=== PATIENT | female | born 1985 | race Caucasian/White ===

== ENCOUNTER 2024-10-16 11:00 | Outpatient (AMB) | payer MEDICAID, SELFPAY ==
--- NOTE | 2024-10-16 11:08 | A.SPINEOV_ITS ---
Intake Visit Reasons: Low back pain Intake Note: Ms. Carmona is here today c/o low back pain. MRI done @ [facility] (brought disc). [employer] Worker Required: No Assessment & Plan Assessment & Plan (1) Back pain: Code(s): M54.9 - Dorsalgia, unspecified Category: Medical Plan Dear Dr Poole, Thank you for referring Mrs Carmona to our office today. She is a very nice 39-year-old female who has had back pain since 2011. It centers in the lower lumbar region and radiates out to the sides. At the time when it started she remembers just picking something up off the floor when she bent down to get it she felt severe pain. 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 She has been to the pain management through the years and has had facet are a phase done routinely and these seem to give her a certain degree of relief. She has also had trigger point injections every 3 months in the lower back region and that helps as well. She has been on gabapentin, and also takes anti-inflammatories and Tylenol as needed. She does have a component of hip pain as well which is in the anterior lateral portion of her hip on the left side. She comes in today with an MRI showing disc degeneration at L5-S1 with an annular tear. PMH: She is reasonably healthy, history of migraines, anxiety, depression, surgery on her nasal turbinates Social hx: Smokes a few cigarettes a day and has been quitting, smokes marijuana in the evenings to help with pain and help her sleep, does not use any alcohol Medications: Rexulti, Zyrtec, gabapentin, Trileptal, venlafaxine, lorazepam, Fioricet Allergies: Clindamycin, doxycycline, penicillin Physical exam: Awake alert oriented no acute distress, strength and reflexes in the lower extremities normal, no pain in the SI joints with provocative maneuvers such as VIVEK testing. Imaging review: Lumbar MRI done in 2023 shows normal alignment of the lumbar spine, very mild disc degeneration L5-S1, there is evidence of an annular tear at L5-S1 Impression: 39-year-old female with chronic low back pain, has very mild findings on her MRI with small annular tear at L5-S1. I sat down with the patient, I went through her MRI with her and we discussed the difficulty with back pain, and the lack of significant findings on her MRI that would lend themselves to surgical intervention. Typically Dr. Owen would want to see severe disc collapse, Modic endplate changes or some kind of misalignment of the spine before he would recommend intervention surgically. Unfortunately I do not know where her back pain is coming from but I do not believe it to be discogenic. It certainly could be muscular or facet mediated given the responses to the RF phase and the trigger points. I recommended she follow up with her pain management doctor to continue with her treatments but that unfortu nately there is not enough findings on her MRI to justify surgery. Thank you for allowing us to care for your patient. The total time spent with this visit with this patient was 45 minutes reviewing history, physical exam, lumbar imaging review, and implementation of treatment plan or further diagnostic testing Jhonny Owen MD,PhD [facility] Coding Level of Care Code New Pt Level 4 (69563) Diagnoses Back pain M54.9
== END 2024-10-16 11:47 | disposition home or self-care (01) ==
LOC: HO.HNS 11:01
PROVIDERS: PCP Family Medicine; Referring Provider Family Medicine; Visit Provider Physician Assistant
DX: M54.9 Dorsalgia, unspecified (principal)
CPT/HCPCS: 99204

== ENCOUNTER → 2024-10-16 11:00 | Outpatient (BNVA) | payer MEDICAID, SELFPAY | PROVIDERS: PCP Family Medicine; Referring Provider Family Medicine; Visit Provider Physician Assistant | DX: Z71.2 Person consulting for explanation of examination or test findings (principal); M54.50 Low back pain, unspecified; G89.29 Other chronic pain | CPT/HCPCS: 99212 ==